=== PATIENT | male | born 1965 | race Caucasian/White ===

== ENCOUNTER 2022-01-18 06:04 | Day surgery (SDC) | payer OTHER ==
[2022-01-15 16:52] VITALS: BMI 29.9
[2022-01-18] MEDS ORDERED: PROPOFOL 20 ML ONE ×3 (07:28)
[2022-01-18] MEDS ORDERED: MIDAZOLAM HCL 2 MG/2 ML SINGLE DOSE VIAL ONE (07:31)
[2022-01-18] MEDS ORDERED: ROPIVACAINE HCL/PF 100 MG/20 ML VIAL ONE (07:32)
[2022-01-18] MEDS ORDERED: FENTANYL CITRATE/PF 50 MCG/ML VIAL ONE (07:32)
[2022-01-18] MEDS ORDERED: EPINEPHrine 1:1,000 1,000 MCG/ML ML ONE (09:41)
[2022-01-18] MEDS ORDERED: ONDANSETRON 4 MG/2 ML VIAL IVPUSH PRN (11:00)
[2022-01-18] MEDS ORDERED: oxyCODONE HCL 5 MG TABLET PO PRN (11:00)
[2022-01-18] MEDS ORDERED: PROMETHAZINE HCL 25 MG/1 ML VIAL IVPUSH PRN (11:00)
[2022-01-18 12:18] VITALS: TEMP 97.8
[2022-01-18 13:31] VITALS: BP 114/80; PULSE 68
== END 2022-01-18 12:40 | disposition home or self-care (01) ==
LOC: FASU 06:04
PROVIDERS: ATTEND Orthopaedic Surgery Sports Medicine
PROC: 0RNJ4ZZ Release Right Shoulder Joint, Percutaneous Endoscopic Approach (ICD-10-PCS; 2022-01-18)
PROC: 0RBJ4ZZ Excision of Right Shoulder Joint, Percutaneous Endoscopic Approach (ICD-10-PCS; 2022-01-18)
PROC: 0LQ14ZZ Repair Right Shoulder Tendon, Percutaneous Endoscopic Approach (ICD-10-PCS; principal; 2022-01-18 08:21)
PROC: 0LS34ZZ Reposition Right Upper Arm Tendon, Percutaneous Endoscopic Approach (ICD-10-PCS; 2022-01-18 08:21)
DX: M75.121 Complete rotator cuff tear or rupture of right shoulder, not specified as traumatic (principal); M24.111 Other articular cartilage disorders, right shoulder; M75.41 Impingement syndrome of right shoulder
CPT/HCPCS: 94760

== ENCOUNTER 2024-01-07 06:23 | Emergency (ER) | payer OTHER ==
[2024-01-07 06:34] VITALS: RESP 16; TEMP 97.6; BMI 30.1
[2024-01-07] MEDS ORDERED: KETOROLAC TROMETHAMINE 30 MG/1 ML VIAL ONE (06:52)
[2024-01-07] MEDS: SODIUM CHLORIDE 1,000 ML IV STA (07:04)
[2024-01-07] MEDS: KETOROLAC TROMETHAMINE 30 MG/1 ML VIAL IVPUSH ONE (07:04)
[2024-01-07 08:12] LABS: HEMOGLOBIN 15.8 G/dL (11.7-16.9); MCH 30.5 pg (25.7-33.7); MCHC 32.9 g/dl (32.0-35.9); MEAN CELL VOLUME 92.8 fl (80-96); MEAN PLT VOLUME 8.9 fl (7.5-11.1); PLATELET COUNT 186.1 10^3/uL (134-434); RBC 5.17 10^6/uL (4.00-5.60); RDW 13.8 % (11.9-15.9); WHITE BLOOD COUNT 8.2 10^3/uL (4.0-10.8)
[2024-01-07 08:32] LABS: EPITHELIAL CELLS 0-5 /hpf
[2024-01-07 09:07] LABS: PLATELET ESTIMATE ADEQUATE
[2024-01-07 09:36] LABS: ALBUMIN 4.4 g/dl (3.4-5.0); ALK PHOS 49 U/L (45-117); ANION GAP 11 mmol/L (4-13); CALCIUM 9.3 mg/dl (8.5-10.1); CHLORIDE 103 mmol/L (98-107); CO2 27 mmol/L (21-32); CREATININE 1.3 mg/dl (0.6-1.3); GLUCOSE,RANDOM 93 mg/dl (74-106); POTASSIUM 4.3 mmol/L (3.5-5.1); SGOT/AST 35 U/L (15-37); SGPT/ALT 34 U/L (7-52); SODIUM 141 mmol/L (136-145); TOT PROT 6.8 g/dl (6.4-8.2)
[2024-01-07 09:55] VITALS: BP 133/91; PULSE 53
== END 2024-01-07 09:57 | disposition home or self-care (01) ==
LOC: FER 06:23
PROC: 3E0333Z Introduction of Anti-inflammatory into Peripheral Vein, Percutaneous Approach (ICD-10-PCS; principal; 2024-01-07)
PROC: 3E0337Z Introduction of Electrolytic and Water Balance Substance into Peripheral Vein, Percutaneous Approach (ICD-10-PCS; 2024-01-07)
DX: M54.50 Low back pain, unspecified (principal); R39.15 Urgency of urination; R10.9 Unspecified abdominal pain
CPT/HCPCS: 36415; 80053; 81003; 81015; 85027; 87086; 99284-25